=== PATIENT | female | born 1980 | race Two or more races ===

== ENCOUNTER 2024-12-07 08:35 | Emergency (ER) | payer MEDICAID, OTHER ==
[~2024-12-07] VITALS: Ht 157.5 cm; Wt 81.6 kg
[2024-12-07 09:03] LABS: BASOPHILS % (AUTO) 0.3 % (0.0-2.0); EOSINOPHILS # (AUTO) 0.1 K/uL (0.0-0.7); EOSINOPHILS % (AUTO) 2.9 % (0.0-7.0); HEMATOCRIT 37.4 % (31.2-41.9); HEMOGLOBIN 12.7 g/dL (10.9-14.3); LYMPHOCYTES # (AUTO) 0.3 K/uL (0.8-4.8); LYMPHOCYTES % (AUTO) 8.7 % (20.5-51.5); MEAN CORPUSCULAR HGB CONC 34 g/dL (32.3-35.6); MEAN CORPUSCULAR VOLUME 88.3 fL (75.5-95.3); MONOCYTES # (AUTO) 0.4 K/uL (0.1-1.30); MONOCYTES % (AUTO) 11.1 % (0.0-11.0); NEUTROPHILS # (AUTO) 2.7 K/uL (1.8-8.9); PLATELET COUNT (AUTO) 68 K/uL (179-408); RED BLOOD CELL COUNT(AUTO) 4.24 MIL/uL (3.63-4.92); WHITE BLOOD COUNT (AUTO) 3.5 K/uL (3.8-11.8)
[2024-12-07 09:07] LABS: DIFFERENTIAL COMMENT 1
[2024-12-07] MEDS ORDERED: LIDOCAINE 1%-EPI 1:100,000 20 ML VIAL ONE (09:31)
[2024-12-07] MEDS: LIDOCAINE 1%-EPI 1:100,000 20 ML VIAL IJ ONE (09:41)
[2024-12-07 10:01] LABS: AMMONIA 11 umol/L (11-32); CARBON DIOXIDE 27 mmol/L (21-32); CHLORIDE 103 mmol/L (98-107); CREATININE 0.8 mg/dL (0.6-1.3); GLUCOSE 129 mg/dL (74-106); POTASSIUM 3.6 mmol/L (3.5-5.1); SODIUM SERUM 138 mmol/L (136-145); UREA NITROGEN, BLOOD 12 mg/dL (7-18)
[2024-12-07 10:07] LABS: ALANINE AMINOTRANSFERASE 6 U/L (14-59); ALBUMIN 2.1 g/dL (3.4-5.0); ALKALINE PHOSPHATASE 64 U/L (50-136); ASPARTATE AMINOTRANSFERASE 22 U/L (15-37); BILIRUBIN,DIRECT 0.5 mg/dL (0.0-0.2); BILIRUBIN,TOTAL 1.4 mg/dL (0.2-1.0); TOTAL PROTEIN, SERUM 6.1 g/dL (6.4-8.2)
[2024-12-07 10:48] LABS: ETHANOL < 3 MG/DL (0-10)
[2024-12-07] MEDS ORDERED: ALBUMIN HUMAN 25% 200 ML ONE (10:50)
[2024-12-07] MEDS: ALBUMIN HUMAN 25% (12.5 GM/50 ML ) BOTTLE IV ONE (10:50)
[2024-12-07 11:11] LABS: LACTIC ACID 2.1 mmol/L (0.4-2.0)
[2024-12-07 11:17] LABS: *BILIRUBIN,URIN NEGATIVE (NEGATIVE); *BLOOD, URINE NEGATIVE (NEGATIVE); *CLARITY,URINE CLEAR (CLEAR); *COLOR,URINE YELLOW (YELLOW); *KETONES,URINE NEGATIVE (NEGATIVE); *PROTEIN,URINE NEGATIVE (NEGATIVE); *UROBILINOGEN,URINE 0.2 E.U./dl (NORMAL); LEUKOCYTE ESTERASE ,URINE NEGATIVE (NEGATIVE); NITRITE, URINE NEGATIVE (NEGATIVE); PH,URINE 6.5 (5.0-8.0); UGLUCOSE NEGATIVE (NEGATIVE)
[2024-12-07 11:28] LABS: *AMPHETAMINE, URINE NEGATIVE (NEGATIVE); *BARBITURATE, URINE NEGATIVE (NEGATIVE); *BENZODIAZEPINE, URINE POSITIVE (NEGATIVE); *CANNABINOID, URINE NEGATIVE (NEGATIVE); *COCCAINE, URINE NEGATIVE (NEGATIVE); *OPIATE, URINE NEGATIVE (NEGATIVE); *PHENCYCLIDINE SCREEN,URINE NEGATIVE (NEGATIVE); FENTANYL, URINE NEGATIVE (NEGATIVE)
[2024-12-07 11:35] LABS: *URINE HCG, QUAL NEGATIVE (NEGATIVE)
[2024-12-07] MEDS ORDERED: NEOMY/BACITRA/POLYMYXIN B OINT UD PACKET TP ONE (11:42)
[2024-12-07] MEDS ORDERED: ALBUMIN HUMAN 25% 100 ML IV ONE (11:45)
[2024-12-07 13:57] VITALS: BP 101/69; O2SAT 96
[2024-12-07 17:12] LABS: TOTAL VOLUME,BODY FLUID 5965 mL
[2024-12-07 17:13] LABS: POLYNUCLEAR, BODY FLUID 17 % (0-25 %); WBC, BODY FLUID 122 /cu. mm (0-200/cu.mm)
[2024-12-07 17:14] LABS: MONOCYTES,BODY FLUID 4 %
[2024-12-07 17:18] LABS: PH, BODY FLUID 6.5
== END 2024-12-07 13:59 | disposition home or self-care (01) ==
LOC: ER 08:35
DX: R18.8 Other ascites (principal); K74.60 Unspecified cirrhosis of liver; R07.9 Chest pain, unspecified; R41.82 Altered mental status, unspecified
CPT/HCPCS: 80076; 80048; 81003; 82140; 82962; 84703; 83986; 85025; 85730; 87040; 36415; 71045; 70450; 76705; 49083; 93005; 99285; 96374; 83605 ×2; 80320; 80307; P9047; J3490; A4606; A4663; G0480